=== PATIENT | female | born 1955 | race Caucasian/White ===

== ENCOUNTER → 2023-10-20 11:51 | Outpatient (CLI) | payer MEDICARE, OTHER, SELFPAY ==
--- NOTE | 2023-10-20 | DI.RAD.S_ITS ---
PROCEDURE: XR BONE LENGTH SCANOGRAM INDICATIONS: LEG LENGTH SCANOGRAM/UNSTEADY GAIT TECHNIQUE: A single frontal standing view of both lower extremities acquired, with measuring ruler situated between the legs. COMPARISON: None. FINDINGS: Right: Total leg length is 91.8 cm. Left: Total leg length is 91.4 cm. IMPRESSION: Leg length as above. Dictated by: David SANTOS Interpreted: Gildardo Reynolds MD on 10/22/2023 at 16:14 Approved by: Gildardo Reynolds M.D. on 10/22/2023 at 21:25
== END ==
PROVIDERS: PCP Nurse Practitioner Family; Referring Provider Nurse Practitioner Family; Visit Provider Nurse Practitioner Family
DX: M21.70 Unequal limb length (acquired), unspecified site (principal); R26.9 Unspecified abnormalities of gait and mobility
CPT/HCPCS: 77073